=== PATIENT | male | born 1935 | race Caucasian/White ===

== ENCOUNTER → 2019-07-02 | Outpatient (CLI) | payer BC ==
[2019-05-09 11:50] VITALS: BP 114/62
[~2019-07-02] MED LIST: ALBU2.5V14 NEB; ALBUTEROL INH; AMLO10TA8 PO; ASPI-612 PO; CONTRAST GIVEN. MC PRN; FURO20TA3 PO; IOHEXOL 300 MG/ML 100ML VIAL. IV ONE; LEVO50TA5 PO; LEVO75TA5 PO; LISI-130 PO; LISI40TA2 PO; MONTELUKAST PO; NAPR-514 PO; PROP60CA PO; TAMS0.4C97 PO; TRAM50TA PO; TRIA15CR TP
--- NOTE | 2019-07-02 10:07 | RAD ---
CT CHEST W/CONTRAST Indication: Adenopathy Technique: Postcontrast CT imaging was performed of the chest, multiplanar reconstruction images submitted. One or more of the following individualized dose reduction techniques were utilized for this examination: 1. Automated exposure control 2. Adjustment of the mA and/or kV according to patient size 3. Use of iterative reconstruction technique. Comparison: May 07, 2019 Findings: There is some motion degradation. There is coronary calcification. There is no pleural or pericardial effusion, pneumothorax, new lobar consolidation. There is again emphysema. Ascending thoracic aortic caliber is within normal limits, no intraluminal flap. Aortic root is slightly ectatic about 3.7 cm. There is some calcification of aortic valvular leaflet. Right pretracheal node about 1.2 cm short axis dimension is unchanged, AP window node about 0.9 cm short axis dimension unchanged. There are several other smaller mediastinal nodes as seen previously. There are also some subcentimeter right hilar nodes, largest of these about 0.8 cm short axis dimension unchanged. No new significantly enlarged axillary nodes are identified. There is no significant abnormality of the thyroid gland. There is multilevel thoracic spondylosis. There is again septal thickening. IMPRESSION: 1. Previously seen mediastinal nodes are unchanged, etiology uncertain. 2. There is again emphysema and evidence of interstitial lung disease/fibrosis. 3. There is again coronary calcification. 4. There is again somewhat ectatic aortic root about 3.7 cm, also some calcification of aortic valvular leaflet. Electronically signed by: Jass Haley MD (07/02/2019 10:04 AM) [id number]
== END | disposition home or self-care (01) ==
LOC: CT 09:01
PROVIDERS: ATTEND Internal Medicine Critical Care Medicine
DX: J98.2 Interstitial emphysema (principal); I25.10 Atherosclerotic heart disease of native coronary artery without angina pectoris; I70.0 Atherosclerosis of aorta
CPT/HCPCS: 71260; Q9967

== ENCOUNTER → 2019-07-09 | Outpatient (CLI) | payer BC ==
[2019-05-09 11:50] VITALS: BP 114/62
[~2019-07-09] MED LIST changes: -CONTRAST GIVEN. MC PRN; -IOHEXOL 300 MG/ML 100ML VIAL. IV ONE; +REGADENOSON 0.4 MG/5 ML DISP.SYRIN. IV ONE
--- NOTE | 2019-07-09 12:38 | RAD ---
MR#: [id number] Date of Study: 07/09/2019 Ordering Physician: DEYSI CHINCHILLA Referring Physician: JEAN-PAUL STATON Tech: RITA Clayton APPROVED REPORT Test Type: Pharmacological Stress Nurse/Tech: Gayle Ya R.N. Test Indications: BRIAN Cardiac History: Family history, Hypertension Medications: See Electronic Medical Record Medical History: See Electronic Medical Record Resting ECG: NSR Resting Heart Rate: 71 bpm Resting Blood Pressure: 110/63mmHg Pretest Chest Pain: No chest pain Nurse/Tech Notes S1S2, lungs sound clear Consent: The procedure was explained to the patient in lay terms. Informed consent was witnessed. Jeremy eout was entered into [employer]. History and Stress Test performed by Gayle Ya R.N. Pharm. Details Pharmacologic stress testing was performed using 0.4mg per 5ml of regadenoson given intravenously ove r 7-10 seconds. Stress Symptoms No chest pain or symptoms. POST EXERCISE Reason for Termination: Infusion complete Target HR: 118 Max HR: 92 bpm Max Blood Pressure: 112/54mmHg Blood Pressure response to exercise: Normal blood pressure response during stress. Chest Pain: No. Arrhythmia: Yes. rare PVC ST Change: No. INTERPRETATION Stress EKG Conclusion: Baseline EKG showed sinus rhythm. No ischemic changes at peak stress. No arr hythmias. Imaging Protocol IMAGE PROTOCOL: Rest Tc-99m/stress Tc-99m 1 day Rest: Stress: Viability: Radiopharm.Tc99m IbltbsnxyHo99e Sestamibi Eryj68rVo 32.8mCi Duration 15min. 10min. Img Date 07/09/2019 07/09/2019 Inj-Img [id number]. 60min. Rest Admin Site:IV - Left AntecubitalAdministrator:RITA Clayton Stress Admin Site: IV - Left AntecubitalAdministrator: RYAN Patrcik, ARRT (R)(N) STRESS DATA End Diast. Vol.62.0mlAv. Heart Rate69.0bpm End Syst. Vol.10.0mlCO Index BSA0.0L/min Myocardial Tlex163.0gEject. Zvwufxwn51.0% Stress Rates Pk. Fill Rate2.45EDV/secLVtime Pk. Fill 120.37msec Pk. Empty Rate3.65ESV/secLVtime Pk. Wqefs588.90msec 1/3 Pk. Fill1.68EDV/sec Stress Scores Regional WT0.00Summed WT0.00 Regional WM0.00Summed WM0.00 Study quality was good. Left Ventricular size was Normal at Rest and Stress. Lung uptake was . Left Ventricular ejection fraction is 84%. The rest and stress images show normal perfusion, normal contraction and thickening. LV Perf. Quant 17 Seg. SSS0.00 17 Seg. SRS2.00 17 Seg. SDS0.00 Stress Defect Extent (% LAD)0.00Rest Defect Extent (% LAD)7.50Rev. Defect Extent (% LAD)0.00 Stress Defect Extent (% LCX) 0.00Rest Defect Extent (% LCX)6.30Rev. Defect Extent (% LCX)0.00 Stress Defect Extent (% RCA)0.00Rest Defect Extent (% RCA)0.00Rev. Defect Extent (% RCA)0.00 Stress Defect Extent (% SHANNON)0.00Rest Defect Extent (% SHANNON)4.60Rev. Defect Extent (% SHANNON)0.00 Conclusion 1. Regadenoson cardioisotope stress test did not show any evidence of ischemia or infarct. 2. Normal left ventricular systolic function with ejection fraction calculated at 84%. 3. Low risk for cardiac events. Signed by : Deysi Chinchilla, Electronically Approved : 07/09/2019 12:37:48
== END | disposition home or self-care (01) ==
LOC: NM 08:38
PROVIDERS: ATTEND Internal Medicine Cardiovascular Disease
DX: R06.09 Other forms of dyspnea (principal); I10 Essential (primary) hypertension
CPT/HCPCS: 78452; 93017; A9500; J2785

== ENCOUNTER → 2019-11-05 | Outpatient (CLI) | payer BC ==
[2019-05-09 11:50] VITALS: BP 114/62
[~2019-11-05] MED LIST changes: -REGADENOSON 0.4 MG/5 ML DISP.SYRIN. IV ONE
--- NOTE | 2019-11-05 14:27 | RAD ---
EXAM: CHEST PA LATERAL INDICATION: Idiopathic pulmonary fibrosis. TECHNIQUE: PA and lateral views COMPARISON: CT of 07/02/2019 FINDINGS: The heart size is normal. The great vessels appear unremarkable. There is no hilar or mediastinal mass. Lungs show prominent interstitial markings similar to prior. These affect the lower lobes to the greatest extent. There is no pleural effusion or pneumothorax. There are no significant osseous abnormalities. IMPRESSION: Findings of interstitial fibrosis, affecting the lower lobes to the greatest extent. Electronically signed by: Boy Griggs MD (11/05/2019 2:24 PM) [facility]
== END | disposition home or self-care (01) ==
LOC: RAD 13:54
PROVIDERS: ATTEND Internal Medicine Critical Care Medicine
DX: J84.112 Idiopathic pulmonary fibrosis (principal)
CPT/HCPCS: 71046